=== PATIENT | female | born 1930 | race Caucasian/White ===

== ENCOUNTER 2017-09-13 12:32 | Observation (INO) | payer MEDICARE, MEDICAID ==
[2017-09-13] MEDS ORDERED: methylPREDNISolone 125 MG* 2 ML VIAL IV ONE (13:09)
[2017-09-13] MEDS ORDERED: Albuterol/Ipratropium NEB.SOL* Albuterol 2.5 MG/Ipratropium 0.5 MG 3 ML INH ONE (13:09)
[2017-09-13 13:38] LABS: Hematocrit 39 % (35-47); Mean Corpuscular HGB Conc 33 g/dl (31-36); Mean Corpuscular Hemoglobin 31 pg (27-31); Mean Corpuscular Volume 93 fL (80-97); Mean Platelet Volume 7 um3 (7.4-10.4); Red Blood Count 4.21 10^6/ul (4.0-5.4); Red Cell Distribution Width 15 % (10.5-15)
[2017-09-13 13:43] LABS: PCO2 Arterial 44 mmHg (35-45)
[2017-09-13 13:49] LABS: Urine Bacteria Absent (Absent); Urine Bilirubin Negative (Negative); Urine Glucose Negative (Negative); Urine Nitrite Positive (Negative)
[2017-09-13 13:57] LABS: Albumin 3.7 g/dL (3.2-5.2); BUN/Creatinine Ratio 20.2 (8-20); Calcium 9.6 mg/dL (8.6-10.3); EGFR African American 72.3 (>60); EGFR Non-African American 56.2 (>60); Globulin 3.4 g/dL (2-4); Potassium 3.9 mmol/L (3.5-5.0); Total Bilirubin 0.5 mg/dL (0.2-1.0); Total Protein 7.1 g/dL (6.4-8.9)
[2017-09-13 14:03] LABS: Troponin I 0.04 ng/mL (<0.04)
--- NOTE | 2017-09-13 14:10 | RAD ---
INDICATION: Short of breath COMPARISON: Chest x-ray 7 6013; CT chest August 05, 2017 TECHNIQUE: An AP portable view obtained at 1340 hours is submitted. FINDINGS: Bones/Soft Tissues: There are no acute bony findings. Cardiomediastinal: The cardiomediastinal silhouette is normal. Lungs: There is hyperinflation with chronic lung findings most conspicuous in the lung bases. There is progressive airspace disease in left lung base, however suggesting a acute superimposed infiltrate. Pleura: There are no significant effusions. Other: None IMPRESSION: HYPERINFLATION WITH CHRONIC LUNG FINDINGS SUSPECT SUPERIMPOSED LEFT LOWER LOBE INFILTRATE.
[2017-09-13] MEDS ORDERED: Levofloxacin 500 MG IVPREMIX(* 500 MG/100 ML BAG IVPB ONE (14:11)
[2017-09-13] MEDS ORDERED: Acetaminophen TAB* 325 MG PO PRN (14:27)
[2017-09-13] MEDS ORDERED: oxyCODONE/Acetamin 5/325 MG* TAB PO PRN (14:27)
--- NOTE | 2017-09-13 14:30 | ED ---
Nirmal Young Abhishek, scribed for Stevenson Black on 09/13/17 at 1331 . Respiratory - HPI Summary HPI Summary: This patient is a 87 year old F presenting to [facility] accompanied by two females with c/o of SOB on exertion, congestion and productive cough, since 6 days ago. Pt uses oxygen tank of 2 liters as needed. Pt states that she has pressure around her pubic region. The patient rates the pain 3/10 in severity. Symptoms aggravated by nothing. Symptoms alleviated by nothing. Patient reports frequency of urination. Patient denies CP, edema on legs, fever, and abd pain. - History of Current Complaint Chief Complaint: EDUpperRespComplaint Stated Complaint: COUGH, CONGESTION Time Seen by Provider: 09/13/17 12:47 Hx Obtained From: Patient, Family/School Traffic Guard Onset/Duration: Gradual Onset - Since 6 days ago, Lasting Days - since 6 days ago, Still Present Initial Severity: Mild Current Severity: Mild Pain Intensity: 3 Character: Cough (Productive), Dyspnea on Exertion Aggravating Factor(s): Other - Exertion Alleviating Factor(s): Nothing Associated Signs and Symptoms: SOB - on exertion - Allergy/Home Medications Allergies/Adverse Reactions: Allergies Allergy/AdvReac Type Severity Reaction Status Date / Time Cephalexin [From Keflex] Allergy Severe Rash And Verified 04/29/17 10:27 Itching Penicillins Allergy Severe Rash Verified 04/29/17 10:27 Sulfa Drugs Allergy Severe Rash Verified 04/29/17 10:27 multivitamins with minerals Allergy Intermediate Rash And Uncoded 04/29/17 10:27 Itching PMH/Surg Hx/FS Hx/Imm Hx Endocrine/Hematology History: Denies: Hx Diabetes Cardiovascular History: Reports: Hx Hypertension - ON MEDS Denies: Hx Pacemaker/ICD Respiratory History: Reports: Hx Chronic Obstructive Pulmonary Disease (COPD), Hx Pneumonia - x3 in 4 yrs, Other Respiratory Problems/Disorders - PNEUMONIA GI History: Reports: Hx Diverticulosis, Hx Gastrointestinal Bleed - 2011, Hx Hiatal Hernia - PT STATES YEARS AGO AND IS UNSURE IF SHE STILL HAS, Other GI Disorders - CHRONIC CONSTIPATION History: Reports: Other Problems/Disorders - frequent uti's; kidney funtion deterioration Denies: Hx Renal Disease Musculoskeletal History: Reports: Hx Arthritis - hands, back Sensory History: Reports: Hx Cataracts, Hx Contacts or Glasses Denies: Hx Hearing Aid Opthamlomology History: Reports: Hx Cataracts, Hx Contacts or Glasses Neurological History: Reports: Hx Headaches - have gotten better in recent years , Hx Migraine - PT STATES YEARS AGO Psychiatric History: Reports: Hx Anxiety, Hx Depression Denies: Hx Panic Disorder - Surgical History Surgery Procedure, Year, and Place: hysterectomy. hernia repair Hx Anesthesia Reactions: No Infectious Disease History: No Infectious Disease History: Denies: Hx Shingles, Hx Tuberculosis, Traveled Outside the [place] in Last 30 Days - Family History Known Family History: Positive: Cardiac Disease, Hypertension, Other - Colon cancer, seizure (son), Alzheimer's disease - Social History Lives: - Colon cancer, seizure (son), and alzeiheimers Alcohol Use: None Substance Use Type: Reports: None Hx Tobacco Use: Yes Smoking Status (MU): Former Smoker Type: Cigarettes Amount Used/How Often: 1/2 PPD Length of Time of Smoking/Using Tobacco: 40 YRS Have You Smoked in the Last Year: No Review of Systems Negative: Fever Eyes: Negative ENT: Negative Negative: Chest Pain Positive: Shortness Of Breath - on Exertion, Cough - productive, Other - Congestion Negative: Abdominal Pain Positive: frequency - urination, other - Pressure around pubic area Negative: Edema Skin: Negative Neurological: Negative Psychological: Normal All Other Systems Reviewed And Are Negative: Yes Physical Exam - Summary Physical Exam Summary: Appearance: Well appearing, no pain distress Skin: warm, dry, reflects adequate perfusion Head/face: normal Eyes: EOMI, GLORIA ENT: normal Neck: supple, non-tender Respiratory: Occasional wheezing, poor air entry Cardiovascular: RRR, pulses symmetrical, tachycardia Abdomen: non-tender, soft Bowel: present Musculoskeletal: normal, strength/ROM intact Neuro: normal, sensory motor intact, A&Ox3 Triage Information Reviewed: Yes Vital Signs On Initial Exam: Initial Vitals Temp Pulse Resp BP Pulse Ox 98.6 F 111 20 141/100 90 09/13/17 12:39 09/13/17 12:39 09/13/17 12:39 09/13/17 12:39 09/13/17 12:39 Vital Signs Reviewed: Yes Diagnostics - Vital Signs Vital Signs Temp Pulse Resp BP Pulse Ox 09/13/17 12:39 98.6 F 111 20 141/100 90 - Laboratory Lab Results: Lab Results 09/13/17 09/13/17 09/13/17 Range/Units 13:10 13:25 13:25 WBC 8.0 (3.5-10.8) 10^3/ul RBC 4.21 (4.0-5.4) 10^6/ul Hgb 13.0 (12.0-16.0) g/dl Hct 39 (35-47) % MCV 93 (80-97) fL MCH 31 (27-31) pg MCHC 33 (31-36) g/dl RDW 15 (10.5-15) % Plt Count 236 (150-450) 10^3/ul MPV 7 L (7.4-10.4) um3 Neut % (Auto) 79.0 (38-83) % Lymph % (Auto) 8.5 L (25-47) % Barber % (Auto) 11.2 H (1-9) % Eos % (Auto) 0.7 (0-6) % Baso % (Auto) 0.6 (0-2) % Absolute Neuts (auto) 6.3 (1.5-7.7) 10^3/ul Absolute Lymphs (auto) 0.7 L (1.0-4.8) 10^3/ul Absolute Monos (auto) 0.9 H (0-0.8) 10^3/ul Absolute Eos (auto) 0.1 (0-0.6) 10^3/ul Absolute Basos (auto) 0 (0-0.2) 10^3/ul Absolute Nucleated RBC 0 10^3/ul Nucleated RBC % 0.1 ABG pH (7.35-7.45) ABG pCO2 (35-45) mmHg ABG pO2 (80-100) mmHg ABG HCO3 (19-31) mmol/L ABG O2 Saturation (95-98) % ABG Base Excess (-2.0-2.0) Sodium (133-145) mmol/L Potassium (3.5-5.0) mmol/L Chloride (101-111) mmol/L Carbon Dioxide (22-32) mmol/L Anion Gap (2-11) mmol/L BUN (6-24) mg/dL Creatinine (0.51-0.95) mg/dL Est GFR ( Amer) (>60) Est GFR (Non-Af Amer) (>60) BUN/Creatinine Ratio (8-20) Glucose (70-100) mg/dL Lactic Acid (0.5-2.0) mmol/L Calcium (8.6-10.3) mg/dL Total Bilirubin (0.2-1.0) mg/dL AST (13-39) U/L ALT (7-52) U/L Alkaline Phosphatase (34-104) U/L Troponin I (<0.04) ng/mL B-Natriuretic Peptide 182 H ( - 100) pg/mL Total Protein (6.4-8.9) g/dL Albumin (3.2-5.2) g/dL Globulin (2-4) g/dL Albumin/Globulin Ratio (1-3) Urine Color Yellow Urine Appearance Turbid Urine pH 6.0 (5-9) Ur Specific Jber 1.015 (1.010-1.030) Urine Protein 2+(100 mg/dl) H (Negative) Urine Ketones Negative (Negative) Urine Blood 2+ H (Negative) Urine Nitrate Positive H (Negative) Urine Bilirubin Negative (Negative) Urine Urobilinogen Negative (Negative) Ur Leukocyte Esterase 3+ H (Negative) Urine WBC (Auto) 3+(>20/hpf) H (Absent) Urine RBC (Auto) 3+(>10/hpf) H (Absent) Urine Bacteria Absent (Absent) Urine Glucose Negative (Negative) 09/13/17 09/13/17 09/13/17 Range/Units 13:25 13:25 13:30 WBC (3.5-10.8) 10^3/ul RBC (4.0-5.4) 10^6/ul Hgb (12.0-16.0) g/dl Hct (35-47) % MCV (80-97) fL MCH (27-31) pg MCHC (31-36) g/dl RDW (10.5-15) % Plt Count (150-450) 10^3/ul MPV (7.4-10.4) um3 Neut % (Auto) (38-83) % Lymph % (Auto) (25-47) % Barber % (Auto) (1-9) % Eos % (Auto) (0-6) % Baso % (Auto) (0-2) % Absolute Neuts (auto) (1.5-7.7) 10^3/ul Absolute Lymphs (auto) (1.0-4.8) 10^3/ul Absolute Monos (auto) (0-0.8) 10^3/ul Absolute Eos (auto) (0-0.6) 10^3/ul Absolute Basos (auto) (0-0.2) 10^3/ul Absolute Nucleated RBC 10^3/ul Nucleated RBC % ABG pH 7.43 (7.35-7.45) ABG pCO2 44 (35-45) mmHg ABG pO2 49 L* (80-100) mmHg ABG HCO3 28.0 (19-31) mmol/L ABG O2 Saturation 90.2 L (95-98) % ABG Base Excess 4.3 H (-2.0-2.0) Sodium 138 (133-145) mmol/L Potassium 3.9 (3.5-5.0) mmol/L Chloride 104 (101-111) mmol/L Carbon Dioxide 29 (22-32) mmol/L Anion Gap 5 (2-11) mmol/L BUN 19 (6-24) mg/dL Creatinine 0.94 (0.51-0.95) mg/dL Est GFR ( Amer) 72.3 (>60) Est GFR (Non-Af Amer) 56.2 (>60) BUN/Creatinine Ratio 20.2 H (8-20) Glucose 97 (70-100) mg/dL Lactic Acid 1.1 (0.5-2.0) mmol/L Calcium 9.6 (8.6-10.3) mg/dL Total Bilirubin 0.50 (0.2-1.0) mg/dL AST 18 (13-39) U/L ALT 15 (7-52) U/L Alkaline Phosphatase 67 (34-104) U/L Troponin I 0.04 H* (<0.04) ng/mL B-Natriuretic Peptide ( - 100) pg/mL Total Protein 7.1 (6.4-8.9) g/dL Albumin 3.7 (3.2-5.2) g/dL Globulin 3.4 (2-4) g/dL Albumin/Globulin Ratio 1.1 (1-3) Urine Color Urine Appearance Urine pH (5-9) Ur Specific Jber (1.010-1.030) Urine Protein (Negative) Urine Ketones (Negative) Urine Blood (Negative) Urine Nitrate (Negative) Urine Bilirubin (Negative) Urine Urobilinogen (Negative) Ur Leukocyte Esterase (Negative) Urine WBC (Auto) (Absent) Urine RBC (Auto) (Absent) Urine Bacteria (Absent) Urine Glucose (Negative) Result Diagrams: 09/13/17 13:25 09/13/17 13:25 Lab Statement: Any lab studies that have been ordered have been reviewed, and results considered in the medical decision making process. - Radiology Chest X-ray Radiology Interpretation Completed By: Radiologist - CXR reveals, per radiologist, HYPERINFLATION WITH CHRONIC LUNG FINDINGS SUSPECT SUPERIMPOSED LEFT LOWER LOBE INFILTRATE. ED physician has reviewed this radiology report and agrees. - EKG 1323 EKG Rhythm: Sinus Tachycardia - 108 BPM Ectopy: PVCs EKG Interpretation: 108 bpm, sinus tachycardia with PVC. Disposition - Course Course Of Treatment: This patient is a 87 year old F presenting to [facility] accompanied by_ with a c/o SOB on exertion, congestion and productive cough, since 6 days ago. Pt uses oxygen tank of 2 liters as needed. CXR reveals, per radiologist, HYPERINFLATION WITH CHRONIC LUNG FINDINGS SUSPECT SUPERIMPOSED LEFT LOWER LOBE INFILTRATE. An EKG at 1323 reveals 108 bpm, sinus tachycardia with PVC. We discussed patient care with Dr. Carr at 1412 and they will accept patient care. The patient will be admitted with Dx of COPD UTI, Pneumonia, hypoxia and positive troponin and r/o ACS. The patient is agreeable with this plan. - Differential Dx - Cardiopulmonary Differential Diagnoses - Cardiopulmonary: Acute Dyspnea, CAD, CHF, Exacerbation Of COPD, Hypoxia, Lower Resp Infection, Pulmonary Edema - Diagnoses Provider Diagnoses: UTI (urinary tract infection), Pneumonia, Elevated troponin, Ruled out for myocardial infarction, COPD exacerbation, Respiratory failure with hypoxia - Physician Notifications Discussed Care Of Patient With: Hilary Carr Time Discussed With Above Provider: 14:12 Instructed by Provider To: Admit As Inpatient - Critical Care Time Critical Care Time: 30-74 min Discharge - Discharge Plan Condition: Stable Disposition: ADMITTED TO [facility] Referrals: Geronimo Aquino MD [Primary Care Provider] - The documentation as recorded by the Nirmal garibay Abhishek accurately reflects the service I personally performed and the decisions made by Sofia austin Emmanuel.
[2017-09-13] MEDS ORDERED: Albuterol/Ipratropium NEB.SOL* Albuterol 2.5 MG/Ipratropium 0.5 MG 3 ML ONE (14:38)
[2017-09-13] MEDS ORDERED: Albuterol/Ipratropium NEB.SOL* Albuterol 2.5 MG/Ipratropium 0.5 MG 3 ML INH PRN (15:32)
[2017-09-13 18:26] LABS: C Reactive Protein 51.19 mg/L (< 5.00)
[2017-09-13] MEDS ORDERED: Diltiazem CD CAP* 180 MG PO SCH (20:30)
[2017-09-13] MEDS: Heparin VIAL(*) 5000 UNITS/ML VIAL (FIVE THOUSAND) SUBCUT SCH (21:44)
--- NOTE | 2017-09-14 00:05 | HP ---
CC: Dr. Aquino; Dr. Dennis; Dr. Dueñas * HISTORY AND PHYSICAL: DATE OF ADMISSION: 09/13/17 PRIMARY CARE PROVIDER: Dr. Aquino. CHIEF COMPLAINT: Shortness of breath, cough, and dysuria. HISTORY OF PRESENT ILLNESS: Odell Naranjo is an 87-year-old female with history of oxygen-dependent COPD. Of note, the patient uses oxygen only when ambulating at 2 L and at night, who presented to the hospital complaining of "I am getting a cold." She stated that she has had dry cough for the past week and she had noted some dysuria symptoms. She stated that she feels pressure in her pelvic area and she has to urinate every hour. She was noted to be mildly hypoxemic in the emergency room, which improved after nebulizer treatment. Currently, her oxygen saturation on room air is 97% . There is a questionable left lower lobe infiltrate and abnormal urinalysis for which she is going to be observed overnight. PAST MEDICAL HISTORY: 1. History of COPD, on oxygen with exercise and at night. 2. History of PMR and inflammatory polyarthropathy, under Dr. Dueñas's care, on Medrol and Plaquenil. 3. History of pneumococcal sepsis and pneumonia with prolonged hospital stay in 2012. 4. History of umbilical hernia repair. 5. Hypertension. 6. Paroxysmal SVT. 7. Hysterectomy. 8. Cataract surgery. OUTPATIENT MEDICATIONS: Include: 1. Pepcid 20 mg daily. 2. Multivitamin 1 tablet daily. 3. Vitamin D3 1000 mg daily. 4. Plaquenil 200 mg daily apart from Fridays when she takes 400 mg. 5. Medrol 2 mg daily. 6. Diltiazem CD 360 mg daily. 7. MiraLAX on a p.r.n. basis. 8. Tylenol on a p.r.n. basis. ALLERGIES: CEPHALEXIN, PENICILLIN, SULFA DRUGS FAMILY HISTORY: Positive for father with colon cancer. Mother with history of heart disease. SOCIAL HISTORY: The patient lives alone. She has 2 very attentive daughters and her healthcare proxy is Elda Coelho. The patient ambulates with a roller walker. She takes care of her own affairs and she lives independently. She stated that she usually does not do the dishes and one of the daughters comes in and does the dishes on a daily basis. The patient with history of half pack per day smoking for 40 years and she quit in 2011. She denies any alcohol or drug use. REVIEW OF SYSTEMS: Please see history of present illness. The patient stated that her Medrol is used for her lower back pain that has improved greatly after the treatment by Dr. Dueñas. All the remaining 12 systems were reviewed with the patient, apart from the ones mentioned in the history of present illness were negative. PHYSICAL EXAMINATION GENERAL: The patient is a pleasant 87-year-old female who is in no acute distress. Alert, awake, and oriented x3. VITAL SIGNS: Blood pressure of 138/68, heart rate of 105 and regular, respiratory rate 16, and oxygen saturation 97% on room air, temperature of 98.6. HEENT: Head: Atraumatic, normocephalic. Eyes: Pupils are equal, reactive to light and accommodation. Oropharynx clear. Mucosa moist. NECK: Supple. No JVD. No bruits bilaterally. RESPIRATORY: Distant breath sounds bilaterally. No wheezes, crackles at bilateral bases. CARDIOVASCULAR: Regular rate and rhythm, no murmur. ABDOMEN: Soft and nontender. Bowel sounds are present in all 4 quadrants. EXTREMITIES: There is no edema. Pulses are +2 bilaterally. No clubbing or cyanosis. NEUROLOGIC: On neuro evaluation, speech is clear. Cranial nerves II through XII grossly intact. Motor strength is 5/5 bilaterally. PSYCHIATRIC EVALUATION: The patient is slightly hard of hearing, limits the conversation, but otherwise alert, communicative, no evidence of anxiety or depression. DIAGNOSTIC STUDIES/LABORATORY DATA: Laboratory data shows white blood cell count of 8.0, hemoglobin of 13.3, hematocrit of 39, and platelets of 236. Sodium is 138, potassium 3.9, chloride 104, carbon dioxide 29, BUN 19, creatinine 0.94. Liver function tests are unremarkable. Troponin of 0.04. ABG showed pH of 7.43, pCO2 of 44, pO2 of 49, bicarb of 28. Urinalysis showed positive for nitrites, +2 esterase, +3 red blood cells, negative bacteria. Rapid flu test was negative. The patient's portable chest x-ray, impression, "hyperinflation with chronic lung findings, suspect superimposed left lower lobe infiltrate." EKG showed sinus tachycardia with a heart rate of 180 beats per minute with multiple LVH criteria, frequent PVCs. Comparing with the EKG from 2013, changes were also present, now are more pronounced LVH criteria. ASSESSMENT AND PLAN: 1. The patient appears to have not that much of a severe chronic obstructive pulmonary disease exacerbation, most likely bronchitis. She is going to get nebulizer treatments, supplemental oxygen as needed. She already received Solu - Medrol in the emergency room and now continues Medrol at home dose. Not very sure about the diagnosis of pneumonia. Clinically she does not appear to have one. I will check procalcitonin level to evaluate it further. Nevertheless, she is going to be treated with Levaquin for her urinary tract infection that will cover respiratory pathogens also. 2. For urinary tract infection, the patient is going to be placed on Levaquin. 3. For her history of polymyalgia rheumatica and arthropathy, patient's Medrol and Plaquenil are going to be continued. 4. For gastroesophageal reflux disease, we will continue with patient's Pepcid. 5. For history of supraventricular tachycardia, patient is going to be continued on Cardizem at home dose. 6. For DVT prophylaxis, the patient is going to be placed on heparin subcutaneously. 7. Code status: The patient's code status is full and her surrogate as mentioned above is one of the daughters. TIME SPENT: Approximately 65 minutes were spent on admission of this patient, more than half of that time was spent [id number] with the patient during the interview and physical exam. [id number] #: [id number] [facility]
[2017-09-14 05:42] LABS: Hematocrit 36 % (35-47); Mean Corpuscular HGB Conc 33 g/dl (31-36); Mean Corpuscular Hemoglobin 31 pg (27-31); Mean Corpuscular Volume 93 fL (80-97); Mean Platelet Volume 7 um3 (7.4-10.4); Red Cell Distribution Width 16 % (10.5-15); White Blood Count 7.6 10^3/ul (3.5-10.8)
[2017-09-14 05:57] LABS: BUN/Creatinine Ratio 20.2 (8-20); Calcium 9.4 mg/dL (8.6-10.3); EGFR African American 82.3 (>60); Potassium 4.6 mmol/L (3.5-5.0)
[2017-09-14] MEDS: Heparin VIAL(*) 5000 UNITS/ML VIAL (FIVE THOUSAND) SUBCUT SCH (05:59)
[2017-09-14 08:06] LABS: Magnesium 2.5 mg/dL (1.9-2.7)
[2017-09-14] MEDS ORDERED: Famotidine TAB* 20 MG PO SCH (09:00)
[2017-09-14] MEDS ORDERED: methylPREDNISolone TAB* 4 MG PO SCH (09:00)
[2017-09-14] MEDS ORDERED: Polyethylene Glycol 3350* 17 GM PACKET PO SCH (09:00)
[2017-09-14] MEDS ORDERED: Hydroxychloroquine TAB* 200 MG PO SCH (09:00)
[2017-09-14] MEDS ORDERED: Diltiazem CD CAP* 180 MG PO SCH (09:00)
[2017-09-14 09:32] VITALS: BP 144/66
[2017-09-14] MEDS ORDERED: Levofloxacin 500 MG IVPREMIX(* 500 MG/100 ML BAG IVPB ONE (14:00)
--- NOTE | 2017-09-15 00:18 | DS ---
CC: Dr. Dennis; Dr. Dueñas; Dr. Aquino * DISCHARGE SUMMARY: DATE OF ADMISSION: 09/13/17 DATE OF DISCHARGE: 09/14/17 PRIMARY CARE PROVIDER: Dr. Aquino. DISCHARGE DIAGNOSES: 1. Bronchitis. 2. Urinary tract infection. Preliminary culture reports growing E. Coli. SECONDARY DIAGNOSES: 1. History of chronic obstructive pulmonary disease, on oxygen at night. 2. History of polymyalgia rheumatica and inflammatory polyarthropathy, under the care of Dr. Dueñas, on Medrol and Plaquenil. 3. History of pneumococcal sepsis with pneumonia and prolonged hospital stay in 2013. 4. History of umbilical hernia repair. 5. Hypertension. 6. History of paroxysmal supraventricular tachycardia. 7. Hysterectomy. 8. History of cataract surgery. MEDICATIONS AT DISCHARGE: Include: 1. Pepcid 20 mg daily. 2. Multivitamin 1 tablet daily. 3. Vitamin D3 1000 units daily. 4. Plaquenil 200 mg daily apart from Thursday when she takes 400 mg daily. 5. Medrol 2 mg daily. 6. Diltiazem CD 360 mg daily. 7. MiraLAX on p.r.n. basis. 8. Tylenol on p.r.n. basis. In addition to that, the patient is going to be placed on Levaquin 500 mg p.o. daily for a total of 5 days and albuterol inhaler 1 inhalation every 4 hours p.r.n. LABORATORY DATA: Throughout the patient's hospital stay included troponin of 0.04 x2. On 09/14/17, sodium 138, potassium 4.6, chloride 104, carbon dioxide 30, BUN 17, creatinine 0.84. White blood cell count 7.6, hemoglobin 12.0, hematocrit 36 and platelets 231,000. Flu test was negative. Urinalysis was grossly positive for UTI. The preliminary report that I got from the microbiology lab is that the patient is growing over 100,000 colonies of E. coli, sensitivity is pending. The patient's portable chest x-ray obtained on 09/13/17, impression: "Hyperinflation with chronic lung findings, suspect superimposed left lower lobe infiltrate." Please note that clinically the patient does not appear to have pneumonia. HOSPITALIZATION COURSE: Odell Naranjo is an 87-year-old female with history of COPD on oxygen at night, polymyalgia rheumatica on chronic steroids who presented complaining of urinary frequency and urgency and cough. She was noted to have UTI and mild hypoxemia on evaluation in the ED. She was admitted to the hospital with a diagnosis of bronchitis and UTI. She was placed on Levaquin due to her multiple drug allergies. She did not clinically appear to have pneumonia. I suspect that her x-rays showed chronic bibasilar lung changes. Nevertheless, she is going to be treated with Levaquin to which she responded very well and her dysuria symptoms resolved within 24 hours of her admission. At discharge, the patient is going to be prescribed albuterol inhaler and Levaquin. PHYSICAL EXAMINATION AT THE TIME OF DISCHARGE: GENERAL: The patient is a very pleasant 87-year-old female who is in no acute distress. Alert, awake and oriented x3. VITAL SIGNS: Blood pressure 144/66, heart rate of 99 and regular, respiratory rate 21, oxygen saturation 96% on 2 L of oxygen nasal cannula, temperature 98.1. HEENT: Head: Atraumatic and normocephalic. Eyes: Pupils are equal, reactive to light and accommodation. Oropharynx is clear. Mucosa moist. NECK: Supple. No JVD. No bruits bilaterally. RESPIRATORY: Distant breath sounds bilaterally. Scant crackles at bilateral bases. CARDIOVASCULAR: Regular rate and rhythm. No murmur. ABDOMEN: Soft, nontender. Bowel sounds are present in all 4 quadrants. EXTREMITIES: There is no edema. Pulses +2 bilaterally. No clubbing, cyanosis. NEURO EVALUATION: Speech is clear. Cranial nerves II through XII grossly intact. Motor strength is 5/5 bilaterally. Please note that this is a short summary of the patient's hospital stay. Please refer to further medical records for details. [id number] #: [id number] [facility]
== END 2017-09-14 11:50 | disposition home or self-care (01) ==
LOC: ED 12:32 → MEDTELE 14:27
PROVIDERS: ADMIT Internal Medicine; ATTEND Internal Medicine
DX: J40 Bronchitis, not specified as acute or chronic (principal); N39.0 Urinary tract infection, site not specified; B96.20 Unspecified Escherichia coli [E. coli] as the cause of diseases classified elsewhere; J44.9 Chronic obstructive pulmonary disease, unspecified; R74.8 Abnormal levels of other serum enzymes; M35.3 Polymyalgia rheumatica; I10 Essential (primary) hypertension; I47.1 Supraventricular tachycardia; Z79.899 Other long term (current) drug therapy; Z88.0 Allergy status to penicillin; Z88.1 Allergy status to other antibiotic agents; Z88.2 Allergy status to sulfonamides; Z87.891 Personal history of nicotine dependence; R06.02 Shortness of breath; R00.0 Tachycardia, unspecified
CPT/HCPCS: 36415; 36600; 71010; 80048; 80053; 81003; 81015; 82803; 83605; 83735; 83880; 84145; 84484; 85025; 86140; 87077; 87086; 87186; 87502; 93005; 94640; 96365; 96372; 96375; 99283; A9270-GY; G0378; J1644; J1956; J2930; J7509

== ENCOUNTER 2019-03-26 15:51 | Inpatient (IN) | payer MEDICARE, MEDICAID ==
[2019-03-26] MEDS ORDERED: NS 0.9% 1000 ML** 1,000 ML IV.FLUID IV ONE (19:06)
--- NOTE | 2019-03-26 19:40 | ED ---
Dizziness - HPI Summary HPI Summary: Pt is an 88 y/o F presenting to the ED with a chief complaint of weakness first onset about 3 weeks ago. She went to Dr. Aquino who dxed her with a UTI, gave her medicine that did not work, then gave her another medicine that has made her feel weak and somewhat confused. She reports nausea, confusion, fatigue, decreased appetite, nonproductive cough , some trouble with her gait, edema in her feet, and black stool with the medicine. She denies fevers, chills, SOB, hematuria or dysuria, and rhinorrhea. She was in the hospital about 5-6 yrs ago with PNA, and has hx of COPD with O2 tx at night. - History Of Current Complaint Chief Complaint: EDGeneral Stated Complaint: "UTI PER DAUGHTER" Time Seen by Provider: 03/26/19 19:06 Hx Obtained From: Patient, Family/Language Specialist - daughter Onset/Duration: Still Present, Gradually Timing: Constant Severity Initially: Moderate Severity Currently: Moderate Character: Weak Aggravating Factor(s): Nothing Alleviating Factor(s): Nothing Associated Signs And Symptoms: Positive: Nausea, Unsteady Gait, Decreased Oral Intake, Change In Medication, Other: - confusion, fatigue. Negative: SOB, Fever , Chills - Allergies/Home Medications Allergies/Adverse Reactions: Allergies Allergy/AdvReac Type Severity Reaction Status Date / Time cephalexin Allergy Rash And Verified 03/26/19 16:06 Itching Penicillins Allergy Rash Verified 03/26/19 16:06 Sulfa (Sulfonamide Allergy Rash Verified 03/26/19 16:06 Antibiotics) multivitamins with minerals Allergy Intermediate Rash And Uncoded 04/29/17 10:27 Itching PMH/Surg Hx/FS Hx/Imm Hx Previously Healthy: Yes Endocrine/Hematology History: Denies: Hx Diabetes Cardiovascular History: Reports: Hx Hypertension - ON MEDS Denies: Hx Pacemaker/ICD Respiratory History: Reports: Hx Chronic Obstructive Pulmonary Disease (COPD) - ON O2 AT HOME, Hx Pneumonia - x3 in 4 yrs, Other Respiratory Problems/Disorders - PNEUMONIA GI History: Reports: Hx Diverticulosis, Hx Gastrointestinal Bleed - 2011, Hx Hiatal Hernia - PT STATES YEARS AGO AND IS UNSURE IF SHE STILL HAS, Other GI Disorders - CHRONIC CONSTIPATION History: Reports: Other Problems/Disorders - frequent uti's; kidney funtion deterioration Denies: Hx Renal Disease Musculoskeletal History: Reports: Hx Arthritis - hands, back Sensory History: Reports: Hx Cataracts, Hx Contacts or Glasses, Hx Hearing Problem Denies: Hx Hearing Aid Opthamlomology History: Reports: Hx Cataracts, Hx Contacts or Glasses Neurological History: Reports: Hx Headaches - have gotten better in recent years , Hx Migraine - PT STATES YEARS AGO Psychiatric History: Reports: Hx Anxiety, Hx Depression Denies: Hx Panic Disorder - Surgical History Surgery Procedure, Year, and Place: hysterectomy. hernia repair Hx Anesthesia Reactions: No Infectious Disease History: No Infectious Disease History: Denies: Hx Shingles, Hx Tuberculosis, Traveled Outside the [place] in Last 30 Days - Family History Known Family History: Positive: Cardiac Disease, Hypertension, Other - Colon cancer, seizure (son), Alzheimer's disease - Social History Alcohol Use: Rare Hx Substance Use: No Substance Use Type: Reports: None Hx Tobacco Use: Yes Smoking Status (MU): Former Smoker Type: Cigarettes Amount Used/How Often: 1/2 PPD Length of Time of Smoking/Using Tobacco: 40 YRS Have You Smoked in the Last Year: No Review of Systems Positive: Fatigue, Other - confusion, decreased appetite. Negative: Fever, Chills Negative: Nasal Discharge Positive: Shortness Of Breath, Cough Positive: Nausea Negative: dysuria, hematuria Positive: Edema, Other - unsteady gait All Other Systems Reviewed And Are Negative: Yes Physical Exam - Summary Physical Exam Summary: Appearance: Well-appearing, Well-nourished, lying in bed comfortably Skin: Warm, dry, no obvious rash Eyes: sclera anicteric, no conjunctival pallor ENT: mucous membranes moist, pharynx appears normal Neck: Supple, nontender Respiratory: Clear to auscultation, no signs of respiratory distress Cardiovascular: Normal S1, S2. S4 gallop appreciated. No murmurs. Normal distal pulses in tibial and radial bilaterally. Abdomen: Soft, nontender, normal active bowel sounds present Musculoskeletal: Normal, Strength/ROM Intact Neurological: A&Ox3, awake and alert, mentation is normal, speech is fluent and appropriate Psychiatric: affect is normal, does not appear anxious or depressed Triage Information Reviewed: Yes Vital Signs On Initial Exam: Initial Vitals Temp Pulse Resp BP Pulse Ox 99.4 F 90 18 170/77 95 03/26/19 15:55 03/26/19 15:55 03/26/19 15:55 03/26/19 15:55 03/26/19 15:55 Vital Signs Reviewed: Yes Diagnostics - Vital Signs Vital Signs Temp Pulse Resp BP Pulse Ox 03/26/19 18:50 100 03/26/19 17:33 97.7 F 87 16 165/69 100 03/26/19 15:55 99.4 F 90 18 170/77 95 - Laboratory Result Diagrams: 03/27/19 06:33 03/27/19 06:33 Lab Statement: Any lab studies that have been ordered have been reviewed, and results considered in the medical decision making process. - Radiology CXR Radiology Interpretation Completed By: ED Physician Summary of Radiographic Findings: There is improvement in previously noted L side infiltrate, but new increased density in R chest, as well as new pleural effusion. Pending official radiology report. - EKG 1946 Cardiac Rate: NL - 90bpm EKG Rhythm: Sinus Rhythm ST Segment: Normal Ectopy: None Summary of EKG Findings: EKG at 1946 shows NSR at 90bpm with anterior Q waves possibly due to LVH, without STEMI. Dizzy Course/Dx - Course Course Of Treatment: Pt is an 88 y/o F presenting to the ED with a chief complaint of weakness first onset about 3 weeks ago. She reports recent medication changes d/t UTI dx'ed by PCP. She reports nausea, confusion, fatigue , decreased appetite, nonproductive cough, some trouble with her gait, edema in her feet, and black stool with the medicine. She denies fevers, chills, SOB, hematuria or dysuria, and rhinorrhea. She was in the hospital about 5-6 yrs ago with PNA, and has hx of COPD with O2 tx at night. The pt's physical exam is normal, aside from an S4 gallop. CXR shows improvement in previously noted L side infiltrate, but new increased density in R chest, as well as new pleural effusion, pending official radiology report. Pts hematology shows MPV of 7.2. INR is 0.93. Her chemistry shows CO2 level of 33, BUN/Creatinine ratio of 23, and Calcium of 11.1. Her lactic acid is 0.6 and Troponin I is 0.04. EKG at 1946 shows NSR at 90bpm with anterior Q waves possibly due to LVH, without STEMI. Pt was accepted to [facility] with a dx of PNA under Dr. Escalona. - Diagnoses Provider Diagnoses: PNA (pneumonia) Discharge - Sign-Out/Discharge Documenting (check all that apply): Patient Departure Patient Received Moderate/Deep Sedation with Procedure: No - Discharge Plan Condition: Improved Disposition: ADMITTED TO [facility] - Billing Disposition and Condition Condition: IMPROVED Disposition: Admitted to [facility] - Attestation Statements Document Initiated by Scribe: Yes Documenting Scribe: Gemma Medina Provider For Whom Jovanni is Documenting (Include Credential): Armond Bowie MD. Scribe Attestation: IGemma, scribed for Armond Bowie MD. on 03/30/19 at 0424. Scribe Documentation Reviewed: Yes Provider Attestation: The documentation as recorded by the Gemma garibay accurately reflects the service I personally performed and the decisions made by me, Armond Bowie MD. Status of Scribe Document: Viewed Consult Consult: 2032 - I spoke with Dr. Escalona who will be accepting the pt to [facility] with a dx of PNA.
[2019-03-26 19:56] LABS: ABS Basophils 0.1 10^3/ul (0-0.2); ABS Eosinophils 0.3 10^3/ul (0-0.6); ABS Lymphocytes 0.7 10^3/ul (1.0-4.8); ABS Monocytes 0.7 10^3/ul (0-0.8); ABS Neutrophils 4.6 10^3/ul (1.5-7.7); Eosinophil % 4.5 %; Hematocrit 43 % (35-47); Hemoglobin 13.9 g/dL (12.0-16.0); Lymphocyte % 11.2 %; Mean Corpuscular HGB Conc 33 g/dL (31-36); Mean Corpuscular Hemoglobin 31 pg (27-31); Mean Corpuscular Volume 95 fL (80-97); Mean Platelet Volume 7.2 fL (7.4-10.4); Platelet Count 300 10^3/uL (150-450); Red Blood Count 4.47 10^6 /uL (3.70-4.87); Red Cell Distribution Width 14 % (10.5-15); White Blood Count 6.3 10^3/uL (3.5-10.8)
[2019-03-26 20:02] LABS: INR 0.93 (0.82-1.09)
[2019-03-26 20:15] LABS: ALT 16 U/L (7-52); AST 26 U/L (13-39); Albumin 4.2 g/dL (3.2-5.2); Albumin/Globulin Ratio 1.3 (1-3); Alkaline Phosphatase 65 U/L (34-104); Anion Gap 6 mmol/L (2-11); Blood Urea Nitrogen 20 mg/dL (6-24); CO2 Carbon Dioxide 33 mmol/L (22-32); Calcium 11.1 mg/dL (8.6-10.3); Chloride 103 mmol/L (101-111); EGFR African American 74.2 (>60); EGFR Non-African American 61.3 (>60); Globulin 3.3 g/dL (2-4); Glucose 96 mg/dL (70-100); Sodium 142 mmol/L (135-145); Total Protein 7.5 g/dL (6.4-8.9)
[2019-03-26 20:19] LABS: Troponin I 0.04 ng/mL (<0.04)
[2019-03-26] MEDS ORDERED: Aztreonam (*) 2 GM in NS 0.9% 50 ML* 50 ML IVPB ONE (20:27)
[2019-03-26] MEDS ORDERED: Acetaminophen TAB* 325 MG PO PRN (21:05)
[2019-03-26] MEDS ORDERED: Albuterol/Ipratropium NEB.SOL* Albuterol 2.5 MG/Ipratropium 0.5 MG 3 ML INH PRN (21:05)
[2019-03-26] MEDS: Enoxaparin(*) 30 MG/0.3 ML SYR SUBCUT SCH (23:10)
[2019-03-26] MEDS ORDERED: Polyethylene Glycol 3350* 17 GM PACKET PO PRN (23:32)
[2019-03-27] MEDS: methylPREDNISolone TAB* 4 MG PO SCH ×2 (00:11→22:32)
[2019-03-27] MEDS: Diltiazem CD CAP* 180 MG PO SCH ×2 (00:11→22:32)
[2019-03-27] MEDS: Hydroxychloroquine TAB* 200 MG PO SCH ×2 (00:11→22:32)
[2019-03-27 01:04] LABS: Urine Appearance Clear; Urine Bilirubin Negative (Negative); Urine Blood Negative (Negative); Urine Color Straw; Urine Glucose Negative (Negative); Urine Ketones Negative (Negative); Urine Nitrite Negative (Negative); Urine Protein Negative (Negative); Urine Specific Gravity 1.009 (1.010-1.030); Urine Urobilinogen Negative (Negative)
[2019-03-27] MEDS ORDERED: Levofloxacin 750 MG IVPREMIX(* 750 MG/150 ML BAG IVPB SCH (05:30)
--- NOTE | 2019-03-27 05:39 | HP ---
CC: Geronimo Aquino MD HISTORY AND PHYSICAL: DATE OF ADMISSION: 03/26/2019 PRIMARY CARE PHYSICIAN: Geronimo Aquino MD HEALTHCARE PROXIES: Her daughters, Elda Coelho, phone [phone] and Rob Naranjo, phone [phone]. CODE STATUS: Full. SOURCE OF INFORMATION: The patient prefers that her daughter Rob answer most of her questions, but history is obtained from both the patient and her daughter together. CHIEF COMPLAINT: Three weeks of decreased energy. HISTORY OF PRESENT ILLNESS: Ms. Naranjo is an 88 year old woman with COPD on nocturnal O2, PMR, HTN, who presents with 3 weeks of decreased energy. The patient and her daughter report that she was in her usual state of health until about 3 weeks ago when she began experiencing weakness, which she describes as decreased energy and "just did not feel like doing anything." The patient also kept repeating that she felt "sick to her stomach" for these last 3 weeks but thought it was due to the unknown antibiotics she was given by her PCP for a possible UTI. However, the daughter reports that the patient has only been taking an antibiotic for a few days. When asked to clarify what she means by "sick to her stomach," she is unable to clarify but denies abdominal pain or vomiting. She does report decreased appetite, but does not think she felt nauseous. The patient also denies fevers, chills, night sweats, or recent weight loss. She reports new lower extremity swelling. She denies shortness of breath, chest pain, abdominal pain, or diarrhea. She does report that she has a chronic cough that has not recently changed and is not productive. She also reports mild intermittent constipation at baseline and not recently changed. In the emergency room, the patient was noted to have oxygen saturation 84% on room air. The patient reports that she only uses oxygen 2 L at night and when ambulating and usually does not need it when she is awake during the day and seated. She was noted to have a new consolidation on chest x-ray with an associated effusion with new lower extremity edema, so she was asked to be admitted to the hospitalist service for treatment of pneumonia and possibly new heart failure workup. Of note, the patient's last hospitalization was about 1-1/2 years ago where she was admitted for bronchitis and UTI. She was treated with Levaquin given her multiple drug allergies. PAST MEDICAL HISTORY: 1. COPD, on home O2 at night and on exertion. 2. Polymyalgia rheumatica and inflammatory polyarthropathy, on Medrol and Plaquenil. 3. Hypertension. 4. History of paroxysmal supraventricular tachycardia. 5. History of pneumococcal sepsis with pneumonia and prolonged hospital stay in 2013. 6. History of hysterectomy. 7. History of cataracts. 8. History of umbilical hernia repair. HOME MEDICATIONS: 1. Methylprednisolone 2 mg nightly. 2. Hydroxychloroquine 200 mg nightly. 3. Diltiazem 360 mg nightly. 4. Famotidine 20 mg daily. 5. MiraLAX 17 g daily as needed for constipation. 6. Multivitamin. 7. Vitamin D3 2000 units daily. ALLERGIES: CEPHALEXIN, PENICILLINS, and SULFA cause a rash with itching. SOCIAL HISTORY: The patient lives alone. She is a retired cat dog or other pet groomer. For fun, she likes to watch TV. She quit tobacco use in 2013. Unable to gauge pack year as daughter reports that the patient "didn't inhale" for the years that she smoked. The patient has an occasional beer. Denies other drugs. FAMILY HISTORY: Mother had "heart troubles." Father: Unknown. REVIEW OF SYSTEMS: A 10-point review of systems was performed and pertinent positives and negatives are listed in the HPI. PHYSICAL EXAMINATION GENERAL: Thin, frail appearing elderly woman, in no acute distress without increased work of breathing, alert, pleasant, and interactive, although frequently defers to her daughter to answer questions. VITAL SIGNS: Afebrile, heart rate 80s, blood pressure 149/63, respiratory rate 20, oxygen saturation 98% on 3 L. HEENT: OP clear. Moist mucous membranes. NECK: Full range of motion without pain. No JVD. LUNGS: Decreased breath sounds at right base with bibasilar crackles. No wheeze. HEART: Regular rate and rhythm. No murmurs, gallops, or rubs. ABDOMEN: Soft, nontender, nondistended. BACK: No CVA tenderness. EXTREMITIES: Warm and well perfused. DP pulses 2+ bilaterally. 1 to 2+ pitting edema custodial up shins. NEURO: CN II through XII intact. Motor grossly normal and symmetric. LABORATORY DATA/DIAGNOSTIC STUDIES: Labs reviewed and significant for, unremarkable CBC. BMP with mildly elevated bicarb 33. Calcium 11.1. Lactic acid normal. Troponin 0.04. UA clear. Chest x-ray with density in right lower lobe with associated right-sided mild pleural effusion, pending official radiology read. EKG, normal sinus rhythm 90 with possible LVH. ASSESSMENT AND PLAN: 88-year-old woman with chronic obstructive pulmonary disease, on home O2; polymyalgia rheumatica; hypertension, is presenting with 3 weeks of decreased energy and likely decreased appetite without any focal signs of infection, is found with new right-sided pleural effusion with consolidation on chest x-ray. 1. Abnormal chest x-ray. While this is more suspicious for pneumonia with parapneumonic effusion, the patient is without fevers, chills, worsening cough, leukocytosis, or elevated lactic acid. We will continue pneumonia treatment given the patient's history of pneumonia and current presentation of weakness and hypoxia; however, if the patient does not get better on antibiotics, can consider another cause of abnormal chest x-ray with associated effusion such as malignancy, which is a concern in this patient who is presenting with a newly elevated serum calcium. Will order iPTH. PE is also on the differential but she is without recent provoking factors. Given extensive antibiotic allergies and history of good response to Levaquin, we will continue the patient on Levaquin for now. Will follow up blood cultures, procalcitonin, and Strep pneumoniae and legionella urine antigens. Consider pulmonology consult for thoracentesis for fluid analysis. Will also order TTE and one dose of furosemide IV in the morning if she does not develop signs of sepsis overnight. 2. Malaise. The patient could have infection, as noted above, with largest concern currently for pneumonia. The patient was also noted to have pulmonary effusions and new lower extremity swelling, so I am also concerned that the patient may have new diagnosis of heart failure, which would explain her symptoms. The patient is at elevated risk given history of hypertension. We will order a transthoracic echo for the morning and one dose of furosemide 20mg IV in the morning if she does not develop signs of sepsis. 3. Hypertension. Continue diltiazem ER 360 mg nightly. 4. Chronic obstructive pulmonary disease. Although the patient is currently denying shortness of breath or cough, she does have new oxygen requirements that could be from pneumonia versus concern for possible new lung mass or new diagnosis of heart failure. Given that the patient denies respiratory symptoms , we will not start on steroid burst at this time; however, we will order the patient for DuoNeb every 4 hours as needed for shortness of breath or wheeze. She is also covered in case of new community-acquired pneumonia as above. 5. Chronic constipation. Continue MiraLAX as needed. 6. Reflux. Continue famotidine as needed. 7. Polymyalgia rheumatica and history of inflammatory polyarthropathy. Continue home Plaquenil and low-dose steroids. 8. DVT prophylaxis: Initiate Lovenox subcu. 9. Code status is full. TIME SPENT: Approximately 60 minutes spent on admission of this patient, more than half of which was spent at bedside for interview and exam. [id number]/CPS #: [id number] MILLICENT
[2019-03-27 06:58] LABS: ABS Basophils 0.1 10^3/ul (0-0.2); ABS Eosinophils 0.1 10^3/ul (0-0.6); ABS Lymphocytes 0.5 10^3/ul (1.0-4.8); ABS Monocytes 0.5 10^3/ul (0-0.8); ABS Neutrophils 6.2 10^3/ul (1.5-7.7); Eosinophil % 1.7 %; Hematocrit 36 % (35-47); Hemoglobin 11.8 g/dL (12.0-16.0); Lymphocyte % 7.3 %; Mean Corpuscular HGB Conc 32 g/dL (31-36); Mean Corpuscular Hemoglobin 31 pg (27-31); Mean Corpuscular Volume 95 fL (80-97); Mean Platelet Volume 7.4 fL (7.4-10.4); Platelet Count 248 10^3/uL (150-450); Red Blood Count 3.83 10^6 /uL (3.70-4.87); Red Cell Distribution Width 14 % (10.5-15); White Blood Count 7.4 10^3/uL (3.5-10.8)
[2019-03-27 07:17] LABS: Calcium 9.4 mg/dL (8.6-10.3); EGFR African American 79.4 (>60); EGFR Non-African American 65.6 (>60); Magnesium 1.9 mg/dL (1.9-2.7); Potassium 3.7 mmol/L (3.5-5.0)
[2019-03-27 07:21] LABS: Troponin I 0.04 ng/mL (<0.04)
[2019-03-27] MEDS ORDERED: Furosemide IV* 10 MG/ML 2 ML VIAL (20 MG) IV ONE (08:00)
[2019-03-27] MEDS: Cholecalciferol TAB* 1000 UNITS PO SCH (08:26)
[2019-03-27] MEDS: Famotidine TAB* 20 MG PO SCH (08:26)
[2019-03-27] MEDS: Prenatal Vitamin TAB PO SCH (09:11)
--- NOTE | 2019-03-27 12:26 | ECHO ---
*[facility]* [place] [address] Fax #: [phone] Transthoracic Echocardiogram Patient: Jose A, Height: 61 in / Odell Avelar 154.9 cm : 1930 Weight: 88.8 lb / Study Date: 03/27/2019 40.4 kg Age: 88 BP: 140 / 59 Gender: F BMI/BSA: 16.8 kg/m^2 HR: 86 bpm / 1.34 m^2 *Hand Slitter: * Aparna Ashby [facility] *Referring Physician: * Mariela Escalona *Reading Physician: * Nathaly Reynoso MD Indications: Edema. History: COPD, supraventricular tachycardia, sepsis. Risk factors: Former tobacco use. Hypertension. Conclusions Summary: 1. Left ventricle: The cavity size is normal. Wall thickness is mildly increased. Systolic function is normal. The estimated ejection fraction is 60-65%. 2. Right ventricle: Systolic function is normal. 3. Left atrium: The atrium is moderately to severely dilated. 4. Right atrium: The atrium is moderately to severely dilated. 5. Atrial septum: Atrial septal aneurysm. The septum bows from left to right, consistent with increased left atrial pressure. 6. Mitral valve: The findings are consistent with mild stenosis. There is mild regurgitation. The mean diastolic gradient is 3.0 mm Hg. The valve area is 1.7 cm^2 (Continuity equation). The valve area index by pressure half-time is 2.74 cm^2/m^2. 7. Tricuspid valve: There is mild-moderate regurgitation. 8. Pericardium, extracardiac: A small pericardial effusion is identified. There is no evidence of hemodynamic compromise. 9. Pulmonary arteries: Systolic pressure is moderately increased. The peak pressure during systole by Doppler is 53.0 mm Hg. 10. Compared with prior echocardiogram of 04/11/13, ventricular function is stable, mitral stenosis is newly noted, mitral regurgitation is stable, tricuspid regurgitation is stable, pulmonary artery pressure previously 64 mmHg. PC effusion was seen previously. Study data: Transthoracic echocardiogram. Procedure: Transthoracic echocardiography was performed. Image quality was fair. The study was technically limited due to body habitus. Complete 2D, spectral Doppler, and color flow Doppler. Location: Bedside. Patient status: Inpatient. Patient room number: 450 01. Rhythm: Normal sinus rhythm. Findings Left ventricle: The cavity size is normal. Wall thickness is mildly increased. Systolic function is normal. The estimated ejection fraction is 60-65%. Wall motion is normal; there are no regional wall motion abnormalities. There is no consistent Doppler evidence of clinically significant diastolic dysfunction. Right ventricle: The cavity size is normal. Wall thickness is mildly increased. Systolic function is normal. Systolic pressure is moderately increased. Left atrium: The atrium is moderately to severely dilated. Right atrium: The atrium is moderately to severely dilated. Atrial septum: Atrial septal aneurysm. Well visualized. The septum bows from left to right, consistent with increased left atrial pressure. A PFO is not demonstrated by color Doppler. Mitral valve: The annulus is mildly to moderately calcified. The leaflets are mildly thickened. The findings are consistent with mild stenosis. There is mild regurgitation. Aortic valve: The valve is trileaflet. The leaflets are mildly thickened. There is no evidence of stenosis. There is no significant regurgitation. Tricuspid valve: The leaflets are normal thickness. There is no evidence of stenosis. There is mild-moderate regurgitation. Pulmonic valve: The leaflets are normal thickness. There is no evidence of stenosis. There is no significant regurgitation. Aorta: Aortic root: The aortic root is appears normal. Ascending aorta: The ascending aorta is not visualized. Aortic arch: The aortic arch is well visualized and calcified. Abdominal aorta: The abdominal aorta is calcified. Pericardium: There is a pleural effusion. A small pericardial effusion is identified. There is no evidence of hemodynamic compromise. Pulmonary arteries: Not well visualized. Systolic pressure is moderately increased. Systemic veins: Inferior vena cava: The vessel is normal in size. The respirophasic diameter changes are in the normal range (>= 50%). Measurements Left ventricle Value Ref Aortic valve Value Ref CALLUM, LAX 4.0 cm 3.8 - 5.2 Tessy diam, ED 2.0 cm ----- ESD, LAX 2.4 cm 2.2 - 3.5 Peak v, S 1.25 m/sec ----- FS, LAX 39 % 27 - 45 VTI, S 22.2 cm ----- PW, ED, LAX 0.9 cm 0.6 - 0.9 Mean grad, S 3.0 mm Hg ----- EF 70 % 54 - 74 Peak grad, S 6.0 mm Hg ----- E', lat tessy, TDI (L) 4.3 cm/sec >=10.0 RUPINDER, VTI 2.15 cm^2 --- -- E/e', lat tessy, 26 RUPINDER, Vmax 1.93 cm^2 ----- TDI E', med tessy, TDI (L) 3.7 cm/sec >=7.0 Mitral valve Value Ref E/e', med tessy, 30 Peak E 1.11 m/sec ----- TDI Peak A 0.9 m/sec ----- E', avg, TDI 4.0 cm/sec Decel time 156 ms ----- E/e', avg, TDI (H) 28 <=14 PHT 60 ms --- -- Mean grad, D 3.0 mm Hg ----- LVOT Value Ref Peak grad, D 6.0 mm Hg ----- Diam, S 2.00 cm Peak E/A ratio 1.2 ----- Area 3.1 cm^2 MVA, PHT 3.7 cm^2 ----- Peak gilbert, S 0.77 m/sec Mean grad, S 1 mm Hg Pulmonic valve Value Ref SV 48 ml Peak v, S 0.55 m/sec ----- Peak grad, S 1.0 mm Hg ----- Ventricular septum Value Ref IVS, ED (H) 1.1 cm 0.6 - 0.9 Tricuspid valve Value Ref TR peak v (H) 3.4 m/sec <=2.8 Right ventricle Value Ref Peak RV-RA grad, S 46 mm Hg ----- CALLUM, LAX 2.3 cm Pressure, S 54 mm Hg Aortic root Value Ref Root diam 2.7 cm <3.7 Left atrium Value Ref AP dim, ES 3.00 cm 2.70 - Decending aorta Value Ref 3.80 Марина peak gilbert 0.35 m/sec ----- ML dim, A4C 4.3 cm SI dim, A4C 6.6 cm Pulmonary artery Value Ref Vol/bsa, ES, A/L (H) 45 ml/m^2 16 - 34 Pressure, S 53.0 mm Hg ----- Right atrium Value Ref Inferior vena cava Value Ref SI dim, ES (H) 6.5 cm 3.4 - 5.3 Diam 2.1 cm ----- ML dim, ES, A4C 3.7 cm 2.6 - 4.4 Estimated RAP 8 mm Hg Legend: (L) and (H) carly values outside specified reference range. Prepared and electronically signed by Nathaly Reynoso MD 03/27/2019 12:26
--- NOTE | 2019-03-27 12:47 | PN ---
Subjective Date of Service: 03/27/19 Interval History: Feels a little better today. No cough, SOB. Appetite fair. Daughter at bedside, feels patient does not seem to have lost weight in past 6 months. No new c/o. Objective Active Medications: Acetaminophen (Tylenol Tab*) 975 mg PO Q8H PRN PRN Reason: FEVER/PAIN Albuterol/Ipratropium (Duoneb (Albuterol 2.5 Mg/Ipratropium 0.5 Mg)) 1 neb INH [id number] AWAKE PRN PRN Reason: sob/wheexing Cholecalciferol (Vitamin D Tab*) 2,000 units PO DAILY [facility] Last Admin: 03/27/19 08:26 Dose: 2,000 units Diltiazem HCl (Cardizem Cd Cap*) 360 mg PO BEDTIME ALFRED Last Admin: 03/27/19 00:11 Dose: 360 mg Enoxaparin Sodium (Lovenox(*)) 30 mg SUBCUT Q24H ALFRED Last Admin: 03/26/19 23:10 Dose: 30 mg Famotidine (Pepcid Tab*) 20 mg PO DAILY ALFRED Last Admin: 03/27/19 08:26 Dose: 20 mg Hydroxychloroquine Sulfate (Plaquenil Tab*) 200 mg PO BEDTIME ALFRED Last Admin: 03/27/19 00:11 Dose: 200 mg Levofloxacin/Dextrose (Levaquin 750 Mg Ivpremix(*)) 750 mg in 150 mls @ 100 mls /hr IVPB Q48H ALFRED; Protocol Last Admin: 03/27/19 05:20 Dose: 100 mls/hr Methylprednisolone (Medrol Tab*) 2 mg PO BEDTIME ALFRED Last Admin: 03/27/19 00:11 Dose: 2 mg Multivitamins ( Vitamin Tab*) 1 tab PO DAILY ALFRED Last Admin: 03/27/19 09:11 Dose: 1 tab Polyethylene Glycol/Electrolytes (Miralax*) 17 gm PO DAILY PRN PRN Reason: CONSTIPATION Vital Signs - 8 hr 03/27/19 03/27/19 03/27/19 07:33 08:00 08:27 Temperature 98.4 F Pulse Rate 86 Respiratory 20 19 Rate Blood Pressure 130/61 (mmHg) O2 Sat by Pulse 100 100 Oximetry Oxygen Devices in Use Now: Nasal Cannula Appearance: Alert, in a chair. In good spirits. Looks comfortable. Eyes: No Scleral Icterus Neck: NL Appearance and Movements; NL JVP, No Thyroid Enlargement, Masses Respiratory: Symmetrical Chest Expansion and Respiratory Effort, Clear to Percussion, - - diminished BS BL. Extremities: No Edema, No Clubbing, Cyanosis, - Skin: No Rash or Ulcers, No Nodules or Sclerosis, - Neurological: Alert and Oriented x 3, NL Sensation Result Diagrams: 03/27/19 06:33 03/27/19 06:33 Assess/Plan/Problems-Billing Assessment: - Patient Problems (1) Pneumonia Current Visit: Yes Status: Acute Code(s): J18.9 - PNEUMONIA, UNSPECIFIED ORGANISM SNOMED Code(s): 902985277 Comment: Continue levofloxacin. O2 sat on 1 L NC requested. (2) PMR (polymyalgia rheumatica) Current Visit: Yes Status: Acute Code(s): M35.3 - POLYMYALGIA RHEUMATICA SNOMED Code(s): 62572519 Comment: Prescribed hydroxychloroquine, methylprednsolone [address] Dueñas. (3) HTN (hypertension) Current Visit: Yes Status: Acute Code(s): I10 - ESSENTIAL (PRIMARY) HYPERTENSION SNOMED Code(s): 97746078 Comment: Continue home dose diltiazem. (4) COPD (chronic obstructive pulmonary disease) Current Visit: Yes Status: Acute Code(s): J44.9 - CHRONIC OBSTRUCTIVE PULMONARY DISEASE, UNSPECIFIED SNOMED Code(s): 96306126 Comment: Quit smoking 2012. Minimal sx's. PRN Rebeccab.
--- NOTE | 2019-03-27 13:03 | PN ---
Progress Note - Progress Note Date of Service: 03/27/19 Note: O2 sat on 1 L/min NC was 95%. I will check RA sat 03/28.
[2019-03-27] MEDS: Enoxaparin(*) 30 MG/0.3 ML SYR SUBCUT SCH (22:38)
[2019-03-28] MEDS: Cholecalciferol TAB* 1000 UNITS PO SCH (09:59)
[2019-03-28] MEDS: Prenatal Vitamin TAB PO SCH (09:59)
[2019-03-28] MEDS: Famotidine TAB* 20 MG PO SCH (09:59)
--- NOTE | 2019-03-28 12:35 | PN ---
Progress Note - Progress Note Date of Service: 03/28/19 Note: Time spent on discharge including exam of patient, discussion with patient, daughter, nurse, review of EMR and preparation of discharge documents is 40 minutes.
[2019-03-28 13:20] VITALS: BP 149/57
--- NOTE | 2019-03-28 14:40 | DS ---
CC: Dr. Aquino; Dr. Dueñas DISCHARGE SUMMARY: DATE OF ADMISSION: DATE OF DISCHARGE: 03/28/19 HISTORY OF PRESENT ILLNESS: This 88-year-old woman presented with 3 weeks of decreased energy. She also had increased cough. I note she quit smoking about 20 years ago. She had been tried on inhaler s before, but was not able to get the knack of actually inhaling respiratory medication. She does rodríguez ve home oxygen, which she uses both at night and during the day with exertion and has portable oxygen as well as concentrator. A chest x-ray was compatible with bronchopneumonia. I would consider this as COPD exacerbation. By the time I saw her, her lungs were quite clear. She had a mild cough, occasional small amount of gre en sputum. She was continued on her usual maintenance dose of methylprednisolone that is a very smal l dose of 2 mg at night that she takes for polymyalgia rheumatica as per Dr. Dueñas. She did well and improved. She did have an O2 saturation of 82% on room air on the day of discharge. As noted above, she already has home oxygen. FINAL DIAGNOSES: 1. Chronic obstructive pulmonary disease exacerbation. 2. Polymyalgia rheumatica. 3. Hypertension. 4. Gastroesophageal reflux disease. DISCHARGE MEDICATIONS: 1. Acetaminophen 975 mg every 8 hours p.r.n. 2. Levofloxacin 750 mg every 48 hours starting 03/29/19 for a total of 3 more doses. 3. Polyethylene glycol as prescribed. 4. Multivitamin 1 daily. 5. Diltiazem 360 mg daily. 6. Methylprednisolone 2 mg daily. 7. Hydroxychloroquine 200 mg daily. 8. Vitamin D3 2000 units daily. 9. Famotidine 20 mg daily. CONDITION ON DISCHARGE: Improved. DISPOSITION ON DISCHARGE: Home. [id number] #: [id number]
[2019-03-29] MEDS ORDERED: Levofloxacin TAB* 750 MG PO SCH (09:00)
== END 2019-03-28 14:30 | disposition home or self-care (01) | DRG 191 ==
LOC: ED 15:51 → MEDTELE 21:05 → MED 03-28 09:25
PROVIDERS: ADMIT Internal Medicine; ATTEND Internal Medicine
DX: J44.1 Chronic obstructive pulmonary disease with (acute) exacerbation (principal); J90 Pleural effusion, not elsewhere classified; M35.3 Polymyalgia rheumatica; I10 Essential (primary) hypertension; R09.02 Hypoxemia; K21.9 Gastro-esophageal reflux disease without esophagitis; K59.09 Other constipation; Z99.81 Dependence on supplemental oxygen; Z79.52 Long term (current) use of systemic steroids; Z79.899 Other long term (current) drug therapy; Z88.0 Allergy status to penicillin; Z88.2 Allergy status to sulfonamides; Z88.8 Allergy status to other drugs, medicaments and biological substances; Z87.891 Personal history of nicotine dependence; Z82.49 Family history of ischemic heart disease and other diseases of the circulatory system
CPT/HCPCS: 36415; 71046; 80048; 80053; 81003; 83605; 83735; 83970; 84145; 84484; 85025; 85610; 87040; 87899; 93005; 93306; 99284; A9270-GY; G8978-GP-CK; G8980-GP-CH; J1650; J1940; J7509